=== PATIENT | male | born 1945 | race Caucasian/White ===

== ENCOUNTER → 2019-08-31 | Outpatient (CLI) | payer MEDICARE ==
[~2019-08-31] MED LIST: ATOR40TA59 PO; CLOP75TA PO; DOCU-109 PO; HYDR-3164 PO; LOPE2TAB27 PO; LORA10CA PO; LOSA-73 PO; METO100T5 PO; OMEP20TA8 PO
--- NOTE | 2019-08-31 14:24 | EKG ---
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
[2019-08-31 14:57] LABS: BASO % 0 % (0-3); EOS # 0.1 x10^3/uL (0.0-0.7); EOS % 2 % (0-3); HEMATOCRIT 37.1 % (39.0-53.0); HEMOGLOBIN 12.6 g/dL (13.0-17.5); LYMPH # 0.9 x10^3/uL (1.0-4.8); LYMPH % 30 % (24-48); MEAN CORPUSCULAR HEMOGLOBIN 32 pg (25-35); MEAN CORPUSCULAR HGB CONC 34 g/dL (31-37); MEAN CORPUSCULAR VOLUME 94 fL (79-100); MONO # 0.8 x10^3/uL (0.0-1.1); MONO % 27 % (0-9); NEUT # 1.2 x10^3/uL (1.8-7.7); NEUT % 41 % (31-73); PLATELET COUNT 107 x10^3/uL (140-400); RED BLOOD COUNT 3.95 x10^6/uL (4.30-5.70); RED CELL DISTRIBUTION WIDTH 13.9 % (11.5-14.5); WHITE BLOOD COUNT 2.9 x10^3/uL (4.0-11.0)
[2019-08-31 15:24] LABS: % EOS 3 % (0-5); % LYMPHS 33 % (24-48); % MONOS 20 % (0-10); % SEGS 44 % (35-66)
[2019-08-31 15:25] LABS: PLT ESTIMATE DECREASED (ADEQUATE)
== END | disposition home or self-care (01) ==
LOC: SURGPAT 13:13
PROVIDERS: ATTEND Neurological Surgery
DX: Z01.818 Encounter for other preprocedural examination (principal); M48.062 Spinal stenosis, lumbar region with neurogenic claudication; M47.26 Other spondylosis with radiculopathy, lumbar region; Z88.5 Allergy status to narcotic agent; Z88.8 Allergy status to other drugs, medicaments and biological substances
CPT/HCPCS: 36415; 85007; 85025; 87641; 93005

== ENCOUNTER 2019-09-05 07:20 | Day surgery (SDC) | payer MEDICARE ==
--- NOTE | 2019-09-02 15:57 | PREOP HP ---
DATE OF SERVICE: 09/05/2019 PREOPERATIVE HISTORY AND PHYSICAL DATE OF SURGERY: 09/05/2019. HISTORY OF PRESENT ILLNESS: The patient is a pleasant 73-year-old who has developed problems with low back pain, buttock and right anterior thigh pain. The problem has been worse for years, but over the last several months has become much more severe. He rates his pain as a 6/10 now and says it can be a 9/10 at its worst. Mornings and evenings are most painful for him. Stairs are difficult for him. He has taken prednisone, which he says helps him. He had epidural steroid injections about 1-1/2 years ago and he said those did work for a short time. He tried them again recently without benefit. He also had physical therapy a number of years ago. PAST MEDICAL HISTORY: Arthritis, prostate cancer, cold sores and fever blisters, hypertension, leukemia, stroke. PAST SURGICAL HISTORY: Multiple eye surgeries bilaterally, septoplasty in 1998, excision of ear canal lesion in 2000. FAMILY HISTORY: Diabetes, hypertension, spine problems. SOCIAL HISTORY: Tobacco use. Retired. . Rarely exercises. Denies substance abuse. Denies tobacco use. Drinks 1-2 times per week. Drinks coffee and tea daily. ALLERGIES: CODEINE, NEOSPORIN and NAPROXEN. CURRENT MEDICATIONS: Losartan, sertraline, Claritin, Plavix, omeprazole, atorvastatin, metoprolol, loperamide, prednisone. REVIEW OF SYSTEMS: A 12-point review of systems was obtained and is noncontributory except for that mentioned above. PHYSICAL EXAMINATION: NEUROSURGERY EXAMINATION: GENERAL APPEARANCE: Alert, pleasant, no acute distress. HEAD: Normocephalic and atraumatic. SKIN: Warm and dry. MUSCULOSKELETAL: Lumbar paraspinal muscle bulk is normal, restricted range of motion of the lumbar spine, [id number] tenderness of the lower lumbar spine on palpation, normal range of motion of the lower extremities bilaterally. EXTREMITIES: No clubbing, cyanosis or edema. NEUROLOGIC: Alert and oriented x 3, normal recent and remote memory. Strength 5/5 in bilateral lower extremities except for 4+/5 right quadriceps, sensory was intact to light touch in the bilateral lower extremities except for decrease in the right anterior thigh, reflexes are present and symmetric in the lower extremities bilaterally except for decreased right knee jerk, negative straight leg raising bilaterally, gait favoring his right leg. IMAGING: I reviewed his lumbar MRI scan from 07/28/2019. On that study, there are a number of abnormalities. He does have a degenerative scoliosis. There are synovial cysts, which are predominantly on the left side at L5-S1 in the foramen. At L3-L4 and L4-L5, there is a trefoil-shaped canal with mild central canal stenosis, but with significant subarticular and lateral recess narrowing. ASSESSMENT/ PLAN: I believe the problems at L3-L4 and L4-L5 on the right are contributing to his right lumbar radicular symptoms. My recommendation is to consider microsurgical decompression at those levels to see if this one will help him. I did discuss this with him including the risk of surgery, technique and expected postoperative course. He understands. He would like to go ahead. We will make the arrangements. LANDY BENSON MD DR: SAYRA/salma JOB#: [id number] / [id number] ANAYELI
[~2019-09-05] VITALS: Ht 170.2 cm; Wt 99.3 kg
[~2019-09-05 07:20] MED LIST changes: +BACITRACIN 50,000 UNIT in IV NORMAL SALINE 1000ML BAG 1,000 ML IRR ONE; -DOCU-109 PO; -HYDR-3164 PO; +HYDROmorphone 2 MG/ML VIAL IV PRN; +LIDOCAINE 1% PF 2 ML VIAL. ID PRN; +MORPHINE SULFATE 2 MG/ML VIAL. IV PRN; +ONDANSETRON PF 4 MG/2 ML VIAL. IV PRN; +PROCHLORPERAZINE 10 MG/2 ML VIAL. IV PRN; +fentaNYL PF VIAL 100 MCG/2 ML VIAL IV PRN
[2019-09-05] MEDS ORDERED: PROPOFOL 50 ML IV ONE ×2 (07:57→10:12)
[2019-09-05] MEDS ORDERED: LIDOCAINE 2% PF 5 ML VIAL. ONE (07:57)
[2019-09-05] MEDS ORDERED: PROPOFOL 20 ML IV ONE (07:57)
[2019-09-05] MEDS ORDERED: REMIFENTANIL 2 MG VIAL. IV ONE (07:57)
[2019-09-05] MEDS ORDERED: ROCURONIUM 50 MG/5 ML VIAL. ONE (07:57)
[2019-09-05] MEDS ORDERED: SUCCINYLCHOLINE 200 MG/10 ML VIAL. ONE (07:57)
[2019-09-05] MEDS ORDERED: fentaNYL PF VIAL 100 MCG/2 ML VIAL ONE (07:57)
[2019-09-05] MEDS ORDERED: 0.9 % SODIUM CHLORIDE 20 ML VIAL. IJ ONE (07:57)
[2019-09-05] MEDS ORDERED: ceFAZolin 2GM PREMIX 2 GM/50 ML BAG IV ONE (08:00)
[2019-09-05] MEDS: IV RINGERS,LACTATED 1000ML 1,000 ML IV SCH (08:16)
[2019-09-05] MEDS ORDERED: ONDANSETRON PF 4 MG/2 ML VIAL. ONE (09:06)
[2019-09-05] MEDS ORDERED: DESFLURANE > 120 MINUTES IH ONE (09:06)
[2019-09-05] MEDS ORDERED: DEXAMETHASONE SOD PHOS 20 MG/5 ML VIAL. ONE (09:06)
[2019-09-05] MEDS ORDERED: ePHEDrine PF IN SALINE 50 MG/10 ML SYRINGE. IV ONE (09:23)
[2019-09-05] MEDS: KETOROLAC 60 MG/2 ML VIAL. ONE (09:42)
[2019-09-05] MEDS: BUPIVACAINE-EPI 0.5%-1:200000 MPF 30 ML VIAL. INJ ONE (09:42)
[2019-09-05] MEDS: THROMBIN TOPICAL 20,000 UNIT SPRAY.SYRN KIT TP ONE (09:42)
[2019-09-05] MEDS: GELATIN SPONGE SIZE 100. ONE (09:42)
[2019-09-05] MEDS ORDERED: PHENYLEPHRINE in 0.9% NACL PF 1 MG/10 ML SYRINGE. IV ONE (10:03)
--- NOTE | 2019-09-05 11:38 | OP ---
DATE OF SURGERY: 09/05/2019 PREOPERATIVE DIAGNOSIS: Lateral recess stenosis and subarticular stenosis, L3-L4, L4-L5. POSTOPERATIVE DIAGNOSIS: Lateral recess stenosis and subarticular stenosis, L3-L4, L4-L5. OPERATION PERFORMED: Hemilaminotomy, decompression of dura and nerve root, L3-L4 and L4-L5, right. The operation was done with EMG monitoring, fluoroscopy, SSEP monitoring, microscopic dissection. SURGEON: Everett Benson M.D. CARDIAC CATH LAB TECHNOLOGIST: MAIKEL Peralta, assisted with the surgery. She assisted with the exposure, the microdecompression at both levels as well as the closure. OPERATIVE INDICATIONS: The patient is a pleasant 73-year-old who developed intractable back and right leg pain which failed conservative measures. On imaging studies, he had above-mentioned findings and I recommended lumbar microsurgery. He did have degenerative scoliosis which did limit the amount of bone work to a degree. However, I felt that I would be able to get an adequate decompression at these levels. I spoke with him about the surgery and risks. He understood and he wished to go ahead. DESCRIPTION OF PROCEDURE: Following general endotracheal anesthesia, the patient was positioned prone on the Shaheed table. Lumbar region prepped and draped in standard fashion. JEANNIE hose and AV impulse boots were applied for DVT prophylaxis. The microscope was draped. Fluoroscopy was draped and brought in. Monitoring was established. Ancef 2 g was given less than 1 hour prior to initiation of the surgery. Using fluoroscopic guidance, incision was made directly extending from mid L3 to mid L5. I dissected down through skin and subcutaneous tissue, reflected the paraspinal muscles, placed a Wanette micro disc retractor, confirmed my position fluoroscopically. I began my work at L4-L5, right. I drilled a generous hemilaminotomy, trimmed away thickened ligamentum flavum laterally. The ligament was very thickened and the nerve root was compressed markedly and I worked gently laterally and drilled bone and then trimmed the ligament and as I worked, I was able to get an adequate decompression. I did work performing a partial foraminotomy and superiorly to this, again there was considerable ligament and there appeared to be a fold within the ligament as if there was an early forming synovial cyst. I trimmed this material away and as I worked, the region became well decompressed interestingly anatomically the L5 root was tucked back and underneath the overlying dura and I had to gently retract the dura medially to visualize the root. The root was very sensitive with even the very lightest touch or retraction was associated with a firing as registered by the EMG. At any rate, as I worked, the region became well decompressed. I copiously irrigated. I moved then to L3-L4 in a similar fashion, drilled a generous hemilaminotomy, trimmed away thickened ligamentum flavum, exposed the dura and the exiting root performing a partial foraminotomy. At this point then I felt that an adequate decompression of both levels. Hemostasis was excellent. I irrigated copiously. I closed the wound in layers with absorbable suture after removing the retractor and assuring myself of excellent hemostasis in the muscle. The skin was closed with 4-0 subcuticular stitch. I felt the surgery went very well. EVERETT BENSON MD DR: SAYRA/salma JOB#: [id number] / [id number] ANAYELI
[2019-09-05] MEDS ORDERED: HYDR-3164 PO (12:24)
[2019-09-05] MEDS ORDERED: DOCU-109 PO (12:24)
--- NOTE | 2019-09-05 12:25 | DISCH ---
DISCHARGE INSTRUCTIONS Condition on Discharge Condition on Discharge: Stable Activity After Discharge Activity Instructions for Disc: Activity as tolerated, Avoid exertion Other activity instructions: no driving for a week Bathing Instructions: Shower-keep dressing dry Lifting Instructions after Dis: No heavy lifting, No pulling or pushing, Do not lift >10 pounds Diet after Discharge Additional Diet Restrictions: resume home diet Wound Incision Care Wound/Incision Care: Ice to area for comfort Other wound/incision instructi: may remove dressing in 48 hours if dry then may shower, no soaking Contacting the after DC Call your doctor for: Concerns you may have Follow-Up Follow up with: Dr. Benson's nurse in 2 weeks [phone] Warfarin Follow-Up Warfarin Follow UP: resume plavix 09/06 LANDY BENSON MD Sep 05, 2019 12:25
[2019-09-05 12:50] VITALS: BP 126/71
[2019-09-05] MEDS: HYDROcodone/APAP 5/325MG 1 TAB TABLET PO ONE (12:59)
--- NOTE | 2019-09-06 14:06 | PATHOLOGY ---
[facility] Accession Number: [id number] . 01 Material submitted: . vertebral column - LUMBAR DECOMPRESSION . 01 Clinical history: . Lumbar stenosis and neurogenic claudication, spondylosis and radiculopathy . 02 Diagnosis: Segments of fibrocartilaginous tissue and bone, lumbar decompression: - Degenerative changes of fibrocartilaginous tissue. (JPM:bijal; 09/06/2019) QMS 09/06/2019 1337 Local . 02 Comment: There is no evidence of an acute inflammatory process or malignancy. . 02 Electronically signed: . Wenceslao Lopez MD, Pathologist NPI- [id number] . 01 Gross description: . Received in formalin labeled "Perkins, Arliss, lumbar decompression," are several pieces of glistening, fibrous tissue measuring 4.8 x 3.9 x 1.4 cm in aggregate dimensions, containing small fragments of possible bone. The tissue is submitted representatively in cassette A1, following decalcification. (TSD; 09/05/2019) TOB/TOB 09/05/2019 1729 Local . 02 Pathologist provided ICD-10: M51.36 . 02 CPT . 194261, [id number] Specimen Comment: A courtesy copy of this report has been sent to [phone] Specimen Comment: [id number] Specimen Comment: Report sent to / DR FRANCOIS Specimen Comment: A duplicate report has been generated due to demographic updates. Performed at: 01 [facility] [address], [place] [id number] MD Tom Rucker MD Phone: [phone] Performed at: 02 [facility] [address] [place], [place] [id number] MD Wenceslao Lopez MD Phone: [phone]
== END 2019-09-05 14:15 | disposition home or self-care (01) ==
LOC: SURG 07:20 → EDUNIT# 08:30 → SURG 14:15
PROVIDERS: ATTEND Neurological Surgery
DX: M48.061 Spinal stenosis, lumbar region without neurogenic claudication (principal); M51.36 Other intervertebral disc degeneration, lumbar region; I10 Essential (primary) hypertension; E78.00 Pure hypercholesterolemia, unspecified; I71.9 Aortic aneurysm of unspecified site, without rupture; K21.9 Gastro-esophageal reflux disease without esophagitis; E66.9 Obesity, unspecified; Z68.34 Body mass index [BMI] 34.0-34.9, adult; Z86.73 Personal history of transient ischemic attack (TIA), and cerebral infarction without residual deficits; Z87.39 Personal history of other diseases of the musculoskeletal system and connective tissue; Z98.42 Cataract extraction status, left eye; Z98.41 Cataract extraction status, right eye; Z86.010 Personal history of colon polyps; Z98.52 Vasectomy status; Z72.89 Other problems related to lifestyle; Z85.46 Personal history of malignant neoplasm of prostate; Z98.890 Other specified postprocedural states; Z88.5 Allergy status to narcotic agent; Z88.8 Allergy status to other drugs, medicaments and biological substances; Z96.1 Presence of intraocular lens
CPT/HCPCS: 63047; 63048; 88304; 88311; 97116; 97162; 97530; A7015; J0171; J0330; J0696; J1100; J1885; J2001; J2370; J2405; J2704; J3010; J3490; J7120; 76000; G0269; J7030